=== PATIENT | female | born 1960 | race Caucasian/White ===

== ENCOUNTER 2016-06-13 09:52 | Day surgery (SDC) | payer BC ==
[2016-06-10 11:33] VITALS: BMI 24.7
[~2016-06-13 09:52] MED LIST: LACTATED RINGERS 1,000 ML IV SCH
[2016-06-13 12:25] VITALS: TEMP 97.5
[2016-06-13] MEDS ORDERED: LIDOCAINE 1% 20 ML VIAL (10MG/ML) FOR IV START INTRADERMA ONE (12:31)
[2016-06-13] MEDS ORDERED: LIDOCAINE 1% INJ 10MG/ML (20 ML MDV) ONE (12:56)
[2016-06-13] MEDS ORDERED: PROPOFOL 10 MG/ML 20 ML VIAL IV ONE (12:56)
--- NOTE | 2016-06-13 13:50 | P.GSHP ---
History of Present Illness H&P Date: 06/13/16 Chief Complaint: Diarrhea This is a 55-year-old female who presents today for colonoscopy. She's had issues with diarrhea. Past Medical History Additional Past Medical History / Comment(s): frequent diarrhea, hx of hiatal hernia History of Any Multi-Drug Resistant Organisms: None Reported Past Surgical History: Cholecystectomy Additional Past Surgical History / Comment(s): nasal sx Past Anesthesia/Blood Transfusion Reactions: No Reported Reaction Past Psychological History: Anxiety Additional Psychological History / Comment(s): states also takes paxil for "hot flashes" Smoking Status: Former smoker Past Alcohol Use History: Rare Additional Past Alcohol Use History / Comment(s): states started smoking age 11 , quit smoking 2014, smoked 1/2 ppd Past Drug Use History: None Reported - Past Family History Sister(s) Family Medical History: Cancer Additional Family Medical History / Comment(s): uterine Medications and Allergies Home Medications Medication Instructions Recorded Confirmed Type PARoxetine [Paxil] 5 mg PO DAILY 06/10/16 06/13/16 History Allergies Allergy/AdvReac Type Severity Reaction Status Date / Time No Known Allergies Allergy Verified 06/13/16 12:23 Surgical - Exam Vital Signs Temp Pulse Resp BP Pulse Ox 97.5 F L 56 L 16 112/72 96 06/13/16 12:24 06/13/16 12:24 06/13/16 12:24 06/13/16 12:24 06/13/16 12:24 - General well developed, no distress - Eyes PERRL - ENT normal pinna - Neck no masses - Respiratory normal expansion - Cardiovascular Rhythm: regular - Abdomen Abdomen: soft, non tender Assessment and Plan Plan: Diarrhea. We'll perform colonoscopy to evaluate for possible colitis.
--- NOTE | 2016-06-13 14:12 | P.OP ---
Date of Procedure: 06/13/16 Preoperative Diagnosis: Diarrhea Postoperative Diagnosis: Diverticulosis Random rectal biopsy Procedure(s) Performed: Colonoscopy Anesthesia: MAC Surgeon: Zacarias Ferguson Pathology: other (Rectum) Condition: stable Disposition: PACU Description of Procedure: The patient's placed on the endoscopy table in the lateral position. She received IV sedation. Digital rectal exam was performed which revealed no abnormalities. Flexible colonoscope was then placed patient anus and passed throughout the entire colon. The colon was very tortuous. Colonoscope was switched to a pediatric scope. The right colon was visualized. The ileocecal valve could not be visualized secondary to tortuosity of the valve. Scope was then withdrawn and the remainder of the ascending colon transverse colon appeared normal. In the descending and sigmoid colon there was mild diverticular changes. It is known to any inflammation. Scope was then brought back the rectum this appeared normal. Due to the patient's symptoms of diarrhea a random rectal biopsies performed.
[2016-06-13 14:48] VITALS: BP 122/74; PULSE 68; RESP 18
== END 2016-06-13 15:10 | disposition home or self-care (01) ==
LOC: ORWHC2ENDO 09:52
PROVIDERS: ATTEND Surgery
DX: K63.89 Other specified diseases of intestine (principal); K57.30 Diverticulosis of large intestine without perforation or abscess without bleeding; F41.9 Anxiety disorder, unspecified; F39 Unspecified mood [affective] disorder; Z79.899 Other long term (current) drug therapy; Z87.891 Personal history of nicotine dependence; Z90.49 Acquired absence of other specified parts of digestive tract
CPT/HCPCS: 88305; 45380; J2001; J2704; 99153

== ENCOUNTER → 2016-08-01 | Outpatient (CLI) | payer BC ==
--- NOTE | 2016-08-05 07:32 | MM ---
Reason for exam: screening (asymptomatic). Last mammogram was performed 1 year and 1 month ago. History: Patient is postmenopausal and is nulliparous. Family history of breast cancer in aunt at age 62. Physical Findings: A clinical breast exam by your physician is recommended on an annual basis and results should be correlated with mammographic findings. MG 3D Screening Mammo W/Cad Bilateral CC and MLO view(s) were taken. Prior study comparison: June 29, 2015, bilateral MG 3d screening mammo w/cad. December 08, 2013, bilateral MG screening mammo w CAD. September 17, 2012, [facility] DIGITAL LEFT BREAST MAMMOGRAM w/CAD. The breast tissue is heterogeneously dense. This may lower the sensitivity of mammography. Finding: There are typically benign round calcifications in the right breast. There is no discrete abnormality. ASSESSMENT: Benign, BI-RAD 2 RECOMMENDATION: Routine screening mammogram of both breasts in 1 year.
== END | disposition home or self-care (01) ==
LOC: RADMAMWWP 13:09
PROVIDERS: ATTEND Family Medicine
DX: Z12.31 Encounter for screening mammogram for malignant neoplasm of breast (principal); Z80.3 Family history of malignant neoplasm of breast
CPT/HCPCS: 77063; G0202

== ENCOUNTER → 2017-08-28 | Outpatient (CLI) | payer BC ==
--- NOTE | 2017-08-31 07:11 | MM ---
Reason for exam: screening (asymptomatic). Last mammogram was performed 1 year and 1 month ago. History: Patient is postmenopausal and is nulliparous. Family history of breast cancer in aunt at age 62. Physical Findings: A clinical breast exam by your physician is recommended on an annual basis and results should be correlated with mammographic findings. MG 3D Screening Mammo W/Cad Bilateral CC, MLO, and XCCL view(s) were taken. Prior study comparison: August 01, 2016, bilateral MG 3d screening mammo w/cad. June 29, 2015, bilateral MG 3d screening mammo w/cad. The breast tissue is heterogeneously dense. This may lower the sensitivity of mammography. There are typically benign round calcifications in both breasts. There is no discrete abnormality. ASSESSMENT: Benign, BI-RAD 2 RECOMMENDATION: Routine screening mammogram of both breasts in 1 year.
== END | disposition home or self-care (01) ==
LOC: RADMAMWWP 06:49
PROVIDERS: ATTEND Family Medicine
DX: Z12.31 Encounter for screening mammogram for malignant neoplasm of breast (principal); Z80.3 Family history of malignant neoplasm of breast
CPT/HCPCS: 77063; 77067

== ENCOUNTER → 2019-05-18 | Outpatient (CLI) | payer BC ==
--- NOTE | 2019-05-20 09:56 | MM ---
Reason for exam: screening (asymptomatic). Last mammogram was performed 1 year and 9 months ago. History: Patient is postmenopausal and is nulliparous. Family history of breast cancer in aunt at age 62. Took hormonal contraceptives for 10 years. Took estrogen for 4 months. Took progesterone for 4 months. Physical Findings: A clinical breast exam by your physician is recommended on an annual basis and results should be correlated with mammographic findings. MG 3D Screening Mammo W/Cad Bilateral CC and MLO view(s) were taken. Prior study comparison: August 28, 2017, bilateral MG 3d screening mammo w/cad. August 01, 2016, bilateral MG 3d screening mammo w/cad. The breast tissue is heterogeneously dense. This may lower the sensitivity of mammography. No significant changes when compared with prior studies. ASSESSMENT: Negative, BI-RAD 1 RECOMMENDATION: Routine screening mammogram of both breasts in 1 year.
== END | disposition home or self-care (01) ==
LOC: RADMAMWWP 15:37
PROVIDERS: ATTEND Family Medicine
DX: Z12.31 Encounter for screening mammogram for malignant neoplasm of breast (principal)
CPT/HCPCS: 77063; 77067

== ENCOUNTER 2019-10-17 11:07 | Day surgery (SDC) | payer BC, OTHER ==
[2019-10-14 11:11] VITALS: BMI 24.3
--- NOTE | 2019-10-14 15:54 | P.HPOB ---
History of Present Illness H&P Date: 10/14/19 Chief Complaint: Postmenopausal bleeding Alka is a 59-year-old female who was having hot flashes other menopausal symptoms and was started on HRT earlier this year that she began to have more bleeding and and much biopsy was attempted the cervix would not cannulate due to her nulliparous status. An ultrasound was done at that time and she continued to take her HRT but the bleeding did eventually stop and lip July. Lining was thickened and therefore a D&C with hysteroscopy has been scheduled. Risks/benefits/alternatives were reviewed with the patient in detail and all questions were answered for the patient. Past Medical History Past Medical History: GERD/Reflux Additional Past Medical History / Comment(s): Hx of hiatal hernia. PM bleeding, spotting, thickening of endometrial wall. History of Any Multi-Drug Resistant Organisms: None Reported Past Surgical History: Cholecystectomy, Tubal Ligation Additional Past Surgical History / Comment(s): Nasal sx Past Anesthesia/Blood Transfusion Reactions: No Reported Reaction, Motion Sickness Smoking Status: Former smoker - Past Family History Sister(s) Family Medical History: Cancer Additional Family Medical History / Comment(s): uterine Medications and Allergies Home Medications Medication Instructions Recorded Confirmed Type Estradiol [Estradiol 0.05 MG Patch] 1 patch TRANSDERM SUTH 10/14/19 10/14/19 History Pepcid (Unknown Dose) 2 tab PO HS 10/14/19 History Progesterone, Micronized 100 mg PO HS 10/14/19 10/14/19 History [Progesterone] Allergies Allergy/AdvReac Type Severity Reaction Status Date / Time No Known Allergies Allergy Verified 10/14/19 10:52 Exam Osteopathic Statement: *. No significant issues noted on an osteopathic structural exam other than those noted in the History and Physical/Consult. Intake and Output 10/14/19 10/14/19 10/14/19 06:59 14:59 22:59 Other: Weight 64.41 kg - OBG Physical Exam Breast: both: normal (no masses) Abdomen: bowel sounds normal, no diffuse tenderness, no bruit present, no guarding noted, no hepatomegaly, no splenomegaly, no mass Vulva: both: normal Vagina: normal moisture, no discharge Cervix: no lesion, no discharge Uterus: normal size, normal contour Adnexa: both: normal Anus/Rectum: normal perianal skin, no rectal mass, no hemorrhoids, heme negative
[~2019-10-17 11:07] MED LIST changes: +DEXAMETHASONE SOD PHOSPHATE 10 MG/ML 1 ML VIAL IV ONE; +HYDROmorphone 0.5 MG/0.5 ML SYRINGE IVP PRN; +LIDOCAINE 1% (10MG/ML) FOR IV START INTRADERMA PRN; +ONDANSETRON 4 MG/2 ML VIAL IVP ONE; +Pre Op ABX Message 1 EACH MISC MISCELLANE ONE
[2019-10-17 11:35] VITALS: RESP 16
[2019-10-17] MEDS ORDERED: PROPOFOL 10 MG/ML 20 ML VIAL IV ONE (13:52)
[2019-10-17] MEDS ORDERED: LIDOCAINE 1% INJ 10MG/ML (20 ML MDV) ONE (13:52)
[2019-10-17] MEDS ORDERED: fentaNYL (PF) 50 MCG/ML 2 ML AMP ONE (13:52)
[2019-10-17] MEDS ORDERED: MIDAZOLAM 2 MG/2 ML VIAL ONE (13:52)
[2019-10-17] MEDS ORDERED: KETOROLAC 30 MG/ML 1 ML VIAL ONE (13:52)
--- NOTE | 2019-10-17 14:11 | P.OP ---
Date of Procedure: 10/17/19 Preoperative Diagnosis: Postmenopausal bleeding Postoperative Diagnosis: Same Procedure(s) Performed: Dilation and curettage Anesthesia: DAI Surgeon: Magan Hinojosa Estimated Blood Loss (ml): 3 Pathology: other (Uterine curettings) Condition: stable Disposition: same day Operative Findings: Cervical stenosis with cervix only dilating enough to perform D&C but not hysteroscopy Description of Procedure: A she was taken to the operating suite where a general anesthetic was found be adequate. She was prepped and draped in the normal sterile fashion and placed in dorsal lithotomy position. Initially weighted speculum was inserted into the vagina and into lip cervix identified and grasped with single-tooth tenaculum. Cervix was then dilated cervix would not dilate enough for passage of hysteroscope therefore sharp curettings submitted endometrium were then obtained and sent to pathology for evaluation. All incidents were then removed. Sponge, lap, needle counts were all correct 2. Patient was then taken to the recovery room in stable and satisfactory condition. Plan - Discharge Summary Discharge Rx Participant: No New Discharge Prescriptions: New Ibuprofen [Motrin] 600 mg PO Q6HR PRN #30 tab PRN Reason: Pain No Action Progesterone, Micronized [Progesterone] 100 mg PO HS Estradiol [Estradiol 0.05 MG Patch] 1 patch TRANSDERM SUTH Pepcid (Unknown Dose) 2 tab PO HS Discharge Medication List Estradiol [Estradiol 0.05 MG Patch] 1 patch TRANSDERM SUTH 10/14/19 [History] Pepcid (Unknown Dose) 2 tab PO HS 10/14/19 [History] Progesterone, Micronized [Progesterone] 100 mg PO HS 10/14/19 [History] Ibuprofen [Motrin] 600 mg PO Q6HR PRN #30 tab 10/17/19 [Rx] Follow up Appointment(s)/Referral(s): Magan Hinojosa DO [Doctor of Osteopathic Medicine] - 1 Week Activity/Diet/Wound Care/Special Instructions: No heavy lifting, limit stairs and driving, and pelvic rest. If any high temperatures, heavy bleeding, or severe pain call my office Discharge Disposition: HOME SELF-CARE
[2019-10-17 14:26] VITALS: TEMP 97.4
[2019-10-17] MEDS ORDERED: LACTATED RINGERS 1,000 ML IV ONE ×2 (14:48)
[2019-10-17 15:01] VITALS: PULSE 66
[2019-10-17 15:15] VITALS: BP 117/55
== END 2019-10-17 15:23 | disposition home or self-care (01) ==
LOC: OR 11:07
PROVIDERS: ATTEND Obstetrics & Gynecology
DX: N95.0 Postmenopausal bleeding (principal); K21.9 Gastro-esophageal reflux disease without esophagitis; Z87.891 Personal history of nicotine dependence; Z90.49 Acquired absence of other specified parts of digestive tract; Z79.899 Other long term (current) drug therapy; Z79.890 Hormone replacement therapy; Z87.19 Personal history of other diseases of the digestive system; Z98.51 Tubal ligation status; Z80.49 Family history of malignant neoplasm of other genital organs
CPT/HCPCS: 88305; 58120; J2250; J1100; J2405; J2001; J3010; J1885; J2704; J1170

== ENCOUNTER 2020-11-08 07:39 | Day surgery (SDC) | payer BC, OTHER ==
[2020-11-06 11:40] VITALS: BMI 24.0
[~2020-11-08 07:39] MED LIST changes: -DEXAMETHASONE SOD PHOSPHATE 10 MG/ML 1 ML VIAL IV ONE; -HYDROmorphone 0.5 MG/0.5 ML SYRINGE IVP PRN; -ONDANSETRON 4 MG/2 ML VIAL IVP ONE; -Pre Op ABX Message 1 EACH MISC MISCELLANE ONE
[2020-11-08] MEDS ORDERED: LACTATED RINGERS 1,000 ML IV ONE ×2 (08:47)
[2020-11-08 09:02] VITALS: RESP 16; TEMP 97.2
[2020-11-08] MEDS ORDERED: PROPOFOL 10 MG/ML 20 ML VIAL IV ONE (09:10)
[2020-11-08] MEDS ORDERED: LIDOCAINE 1% INJ 10MG/ML (20 ML MDV) ONE (09:10)
--- NOTE | 2020-11-08 09:13 | P.GSHP ---
History of Present Illness H&P Date: 11/08/20 Chief Complaint: Screening colonoscopy, GERD Is a 60-year-old female who presents today for EGD and screening colonoscopy. She's had some issues with dysphagia. She describes trouble swallowing pills. She has some complaints of mild GERD. Past Medical History Past Medical History: GERD/Reflux Additional Past Medical History / Comment(s): Hx of hiatal hernia, History of Any Multi-Drug Resistant Organisms: None Reported Past Surgical History: Cholecystectomy, Tubal Ligation Additional Past Surgical History / Comment(s): Nasal sx, Past Anesthesia/Blood Transfusion Reactions: No Reported Reaction, Motion Sickness Smoking Status: Former smoker - Past Family History Sister(s) Family Medical History: Cancer Additional Family Medical History / Comment(s): uterine Medications and Allergies Home Medications Medication Instructions Recorded Confirmed Type Pepcid (Unknown Dose) 1 tab PO HS 10/14/19 11/08/20 History Progesterone, Micronized 100 mg PO HS 10/14/19 11/08/20 History [Progesterone] estradioL [Estradiol 0.05 MG Patch] 1 patch TRANSDERM SUTH 10/14/19 11/08/20 History Ibuprofen [Motrin] 600 mg PO Q6HR PRN #30 tab 10/17/19 11/08/20 Rx Progesterone, Micronized 100 mg PO DAILY 11/06/20 11/08/20 History [Progesterone] Allergies Allergy/AdvReac Type Severity Reaction Status Date / Time No Known Allergies Allergy Verified 11/08/20 08:48 Surgical - Exam Vital Signs Temp Pulse Resp BP Pulse Ox 97.2 F L 62 16 115/67 97 11/08/20 08:50 11/08/20 08:50 11/08/20 08:50 11/08/20 08:50 11/08/20 08:50 - General well developed, well nourished, no distress - Eyes PERRL - ENT normal pinna - Neck no masses, no bruits - Respiratory normal expansion - Cardiovascular Rhythm: regular - Abdomen Abdomen: soft, non tender Assessment and Plan Assessment: GERD we'll perform EGD. We'll also perform screening colonoscopy
--- NOTE | 2020-11-08 09:35 | P.OP ---
Date of Procedure: 11/08/20 Preoperative Diagnosis: Screening GERD Postoperative Diagnosis: Antral gastritis No evidence of hiatal hernia Esophagitis pathology pending Procedure(s) Performed: EGD Colonoscopy Anesthesia: MAC Surgeon: Zacarias Ferguson Pathology: other (Antrum) Condition: stable Disposition: PACU Description of Procedure: Patient's placed on the endoscopy table in the lateral position. She received IV sedation. The gastroscope placed oropharynx passed in the esophagus scope was placed through the pylorus. The first and second portion of the duodenum. Normal. Scope was brought back the antrum this was minimal inflamed. A biopsy was performed. The scope was then retroflexed meters stomach appeared normal. There was no significant hiatal hernia. The GE junction was at 40 cm. The distal esophagus appeared normal. A random biopsy the distal esophagus performed due to the patient's symptoms of reflux was withdrawn the proximal esophagus appeared normal. There is no evidence of any obstruction of the esophagus. Scope was withdrawn for patient. Next digital rectal exam was performed, this revealed no abnormalities. The flexible colonoscope was then placed patient anus and passed throughout the entire colon. The ileocecal valve was visualized. The cecum, ascending and transverse colon appeared normal. The descending and sigmoid colon appeared normal. Scope was then brought back the rectum and this was normal. Scope was withdrawn from patient.
[2020-11-08 09:59] VITALS: BP 114/75; PULSE 65
== END 2020-11-08 10:33 | disposition home or self-care (01) ==
LOC: ORWHC2ENDO 07:39
PROVIDERS: ATTEND Surgery
DX: Z12.11 Encounter for screening for malignant neoplasm of colon (principal); K21.9 Gastro-esophageal reflux disease without esophagitis; K31.9 Disease of stomach and duodenum, unspecified; R13.10 Dysphagia, unspecified; Z79.1 Long term (current) use of non-steroidal anti-inflammatories (NSAID); Z87.891 Personal history of nicotine dependence; K44.9 Diaphragmatic hernia without obstruction or gangrene
CPT/HCPCS: 88305; 43239; J2001; J2704; G0121

== ENCOUNTER → 2022-06-02 | Outpatient (CLI) | payer BC, OTHER ==
--- NOTE | 2022-06-02 09:31 | FL ---
EXAMINATION TYPE: FL barium swallow DATE OF EXAM: 06/02/2022 9:26 AM COMPARISON: None CLINICAL INDICATION:Female, 61 years old with history of K22.4 DYSKINESIA OF ESOPHAGUS; PHH, TECHNIQUE: The procedure was explained and patient history elicited. All patient questions were ans wered prior to start of procedure. Multiple spot fluoroscopic images of the esophagus were obtained a fter the oral ingestion of effervescent crystals and liquid barium as the contrast agent. Fluoroscopic time: 11 seconds Fluoroscopic images: 179 FINDINGS: The esophagus demonstrates normal primary and secondary peristalsis. There is mild indentation upon t he posterior proximal esophagus secondary to lower anterior cervical osteophytosis. The esophageal mu cosa is smooth without evidence of focal stricture, ulceration, or abnormal outpouching. No gastroes ophageal reflux disease was identified. No hiatal hernia. IMPRESSION: 1. No evidence for stricture, ulceration, or abnormal outpouching. 2. Mild indentation upon the posterior proximal esophagus secondary to lower anterior cervical osteop hytosis. No significant hold up of contrast.
== END | disposition home or self-care (01) ==
LOC: RADUSWWP 08:40
PROVIDERS: ATTEND Family Medicine
DX: K22.4 Dyskinesia of esophagus (principal); M25.78 Osteophyte, vertebrae
CPT/HCPCS: 74220

== ENCOUNTER 2022-07-25 06:32 | Day surgery (SDC) | payer BC, OTHER ==
[2022-07-22 15:22] VITALS: BMI 25.7
[2022-07-25 07:06] VITALS: TEMP 97
[2022-07-25] MEDS ORDERED: LACTATED RINGERS 1,000 ML IV ONE (07:48)
[2022-07-25] MEDS ORDERED: LIDOCAINE 2% INJ 20 MG/ML (2 ML VIAL) ONE (07:48)
[2022-07-25] MEDS ORDERED: PROPOFOL 10 MG/ML 20 ML VIAL IV ONE (07:48)
--- NOTE | 2022-07-25 07:58 | P.PCN ---
Date of Procedure: 07/25/22 Procedure(s) Performed: BRIEF HISTORY: Patient is a 61-year-old, pleasant, female scheduled for an upper endoscopy as a part of evaluation of globus sensation in her throat area and throat irritation for the last several months duration. She was tried on Prilosec 20 mg daily for few months with no help. She denies any dysphagia except for occasional pills. His and scheduled for an upper endoscopy with possible dilation. PROCEDURE PERFORMED: Esophagogastroduodenoscopy with biopsy. PREOPERATIVE DIAGNOSIS: Globus pharyngeus and throat irritation. IV sedation per anesthesia. PROCEDURE: After informed consent was obtained, the patient was brought into the endoscopy unit. IV sedation was administered by Anesthesia under continuous monitoring. Initially the Olympus GIF-140 video endoscope was inserted into the mouth. Esophagus intubated without any difficulty. It was gradually advanced into the stomach and duodenum and carefully examined. The bulb and the second part of the duodenum appeared normal. The scope at this time was withdrawn to the stomach, adequately insufflated with air, and upon careful examination, mucosa of the antrum, had scattered erosions and biopsies were done from this area. Because of the body, cardia and the fundus appeared normal. The scope was then withdrawn into the esophagus. The GE junction was located at 39 cm from the incisors. Small sliding type hiatal hernia noted. The esophagus appeared normal. There were no erosions or ulcerations seen. No evidence of esophageal stricture. The proximal cervical esophagus was carefully examined and appeared normal. Multiple biopsies were done from mid and distal esophagus to rule out eosinophilic esophagitis and the patient tolerated the procedure well. IMPRESSION: 1. Normal-appearing esophagus with no evidence of esophagitis or esophageal stricture. 2. Small hiatal hernia. 3. Mild antral gastritis RECOMMENDATIONS: The findings of this examination were discussed with the patient well as her family. She was advised to follow with the biopsy results. Advised to try Pepcid OTC 20 mg twice daily He'll see for any symptomatic improvement.
[2022-07-25 08:10] VITALS: BP 120/61; PULSE 57; RESP 16
== END 2022-07-25 08:34 | disposition home or self-care (01) ==
LOC: ORWHC2ENDO 06:32
PROVIDERS: ATTEND Internal Medicine Gastroenterology
DX: K29.50 Unspecified chronic gastritis without bleeding (principal); K44.9 Diaphragmatic hernia without obstruction or gangrene; K21.00 Gastro-esophageal reflux disease with esophagitis, without bleeding; Z87.891 Personal history of nicotine dependence
CPT/HCPCS: 88305; 43239; J2704; J2001

== ENCOUNTER → 2022-10-01 | Outpatient (CLI) | payer BC, OTHER ==
--- NOTE | 2022-10-01 11:54 | FL ---
EXAMINATION TYPE: FL barium swallow w video DATE OF EXAM: 10/01/2022 MODIFIED SWALLOW / DEGLUTITION STUDY CLINICAL HISTORY: Dysphagia. TECHNIQUE: Deglutition study is performed utilizing thin liquid barium, honey and nectar thick liqui d barium, barium thick applesauce, and barium coated cracker. Total dose area product (DAP) in uGy*m ?, mGy*cm? (or similar): n/p. A total of 51 seconds of fluoroscopic time. 0 images saved to PACS. COMPARISON: None. FINDINGS: The oral and pharyngeal phases show satisfactory initiation and propagation with all modali ties tested. Normal mastication is seen with solid modalities tested. There is no evidence of penet ration or aspiration with any modality tested. No significant pharyngeal residue was appreciated. Th ere is reversal of normal cervical curvature with moderate spurring and disc space narrowing at C5-C6 level noted. IMPRESSION: No penetration or aspiration observed. Please refer to speech therapist notes for further details if necessary.
== END | disposition home or self-care (01) ==
LOC: RADFLMAIN 10:37
PROVIDERS: ATTEND Otolaryngology
DX: R13.12 Dysphagia, oropharyngeal phase (principal)
CPT/HCPCS: 74230

== ENCOUNTER → 2023-02-24 | Outpatient (CLI) | payer BC, OTHER ==
--- NOTE | 2023-02-25 16:16 | MM ---
Reason for Exam: Screening (asymptomatic). Last mammogram was performed 1 year(s) and 6 month(s) ago. Patient History: Menarche at age 13. Patient has no children. Postmenopausal. Currently using Estrogen, for 1 year, 4 months. Currently using Progesterone, for 1 year, 4 months. Patient used Hormonal Contraceptives for 10 years. Maternal aunt had breast cancer, age 62. Maternal aunt had breast cancer. Risk Values: Yaneli 5 year model risk: 1.6%. NCI Lifetime model risk: 6.8%. Prior Study Comparison: 08/28/2017 Bilateral Screening Mammogram, [facility]. 05/18/2019 Bilateral Screening Mammogram, [facility]. 08/06/2021 Bilateral Screening Mammogram, [facility]. Tissue Density: The breast tissue is heterogeneously dense. This may lower the sensitivity of mammography. Findings: Analyzed By CAD. Pattern appears symmetrical and stable. No significant interval change is evident. No suspicious groups of microcalcifications, spiculated or lobular masses, architectural distortion or other secondary signs of malignancy are mammographically apparent. Overall Assessment: Benign, BI-RAD 2 Management: Screening Mammogram of both breasts in 1 year. A negative mammogram report should not preclude additional follow up of suspicious palpable abnormalities. Patient should continue monthly self breast exam. A clinical breast exam by your physician is recommended on an annual basis and results should be correlated with mammographic findings. Electronically signed and approved by: Jaret Reed D.O. Radiologis
== END | disposition home or self-care (01) ==
LOC: RADMAMWWP 10:52
PROVIDERS: ATTEND Family Medicine
DX: Z12.31 Encounter for screening mammogram for malignant neoplasm of breast (principal); Z80.3 Family history of malignant neoplasm of breast; Z78.0 Asymptomatic menopausal state
CPT/HCPCS: 77063; 77067

== ENCOUNTER → 2024-04-29 | Outpatient (CLI) | payer BC, OTHER ==
--- NOTE | 2024-05-06 19:29 | MM ---
Reason for Exam: Screening (asymptomatic). Last mammogram was performed 1 year(s) and 2 month(s) ago. Patient History: Menarche at age 13. Patient has no children. Postmenopausal. Currently using Estrogen, for 1 year, 4 months. Currently using Progesterone, for 1 year, 4 months. Patient used Hormonal Contraceptives for 10 years. Maternal aunt had breast cancer, age 62. Maternal aunt had breast cancer. Risk Values: Yaneli 5 year model risk: 1.6%. NCI Lifetime model risk: 6.6%. Prior Study Comparison: 05/18/2019 Bilateral Screening Mammogram, [facility]. 08/06/2021 Bilateral Screening Mammogram, [facility]. 02/24/2023 Bilateral MG 3D screening mammo w/cad, [facility]. Tissue Density: The breasts are heterogeneously dense, which may obscure small masses. Findings: Analyzed By CAD. Unchanged bilateral areas of asymmetric density. There is no suspicious group of microcalcifications or new suspicious mass in either breast. Overall Assessment: Benign, BI-RAD 2 Management: Screening Mammogram of both breasts in 1 year. . Patient should continue monthly self-breast exams. A clinical breast exam by your physician is recommended on an annual basis. This exam should not preclude additional follow-up of suspicious palpable abnormalities. Note on Yaneli scores and lifetime risk: 1. A Yaneli score greater than 3% is considered moderate risk. If this is the case, consider specialist referral to assess eligibility for a risk reducing agent. 2. If overall lifetime risk for the development of breast cancer is 20% or higher, the patient may qualify for future screening with alternating mammogram and breast MRI. [facility], , 05/06/2024 6:33 PM. Electronically signed and approved by: Neelam Moncada M.D. Radiologist
== END | disposition home or self-care (01) ==
LOC: RADMAMWWP 15:15
PROVIDERS: ATTEND Family Medicine
DX: Z12.31 Encounter for screening mammogram for malignant neoplasm of breast (principal); Z78.0 Asymptomatic menopausal state; Z80.3 Family history of malignant neoplasm of breast; R92.333 Mammographic heterogeneous density, bilateral breasts
CPT/HCPCS: 77063; 77067

== ENCOUNTER → 2024-09-07 | Outpatient (CLI) | payer MEDICARE, OTHER ==
--- NOTE | 2024-09-07 11:33 | CA ---
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 ICD-10 Codes: Patient History: Medications: ESTEROL,,, Meds past 24 hrs: Pretest Chest Pain: STRESS TEST [place] Protocol Exercise Duration (min:sec): 08:[address] Depressions (mm): Angina Score: Churchill Score: Resting HR (bpm): 69 Peak HR (bpm): 135 Resting BP (mmHg): 100 / 72 Peak BP (mmHg): 165 / 84 MPHR: 155 Target HR: 132 % MPHR: 87 METS: 10.3 Total Dose: Peak Dose: Atropine: Double Product: 91734 BP Response: Stress Termination: TARGET HR REACHED/MAX EXERTION Stress Symptoms: NO SYMPTOMS Stress Summary: ECG ANALYSIS Resting ECG: Stress ECG: CONCLUSIONS Baseline EKG revealed normal sinus rhythm without significant ST-T changes. Patient walked on a standard [place] protocol for a total duration of 8 minutes and achieved a maximal heart rate of 135 bpm which is 87% of predicted maximal. No angina no arrhythmia no ST segment changes to indicate ischemia. This is a negative stress test with somewhat limited exercise capacity. No evidence of ischemia Dr. Ashish Pineda MD (Electronically Signed) Final Date: 07 Sep 2024 11:32
== END | disposition home or self-care (01) ==
LOC: RADNMMAIN 09:27
PROVIDERS: ATTEND Family Medicine
DX: I20.89 Other forms of angina pectoris (principal)
CPT/HCPCS: 93017